=== PATIENT | male | born 1945 ===

== ENCOUNTER 2021-07-07 10:15 | Outpatient (CLI) | payer MEDICARE, BC | END 2021-07-07 10:16 | disposition home or self-care (01) | LOC: CSHCT 10:15 | PROVIDERS: ATTEND Physician Assistant Medical | DX: K59.09 Other constipation (principal); K29.80 Duodenitis without bleeding; Z86.010 Personal history of colon polyps; K57.30 Diverticulosis of large intestine without perforation or abscess without bleeding; R10.13 Epigastric pain; N28.1 Cyst of kidney, acquired | CPT/HCPCS: 74177; 82565 ==